=== PATIENT | male | born 1960 | race Asian ===

== ENCOUNTER 2025-03-10 12:29 | Outpatient (CLI) | payer MEDICAID ==
[2025-03-10] MEDS ORDERED: GADOTERATE MEGLUMINE 7.5 MMOL/15 ML VIAL IV ONE (19:09)
--- NOTE | 2025-03-11 05:27 | RADIOLOGY REPORT ---
PROCEDURE: MR MRI LUMBAR SPINE INDICATION: MALIGNANT NEOPLASM OF PROSTATE Exam Date: 03/10/2025 01:08 PM COMPARISON: None TECHNIQUE: MRI lumbar spine without intravenous contrast. FINDINGS: EXAM: MRI Lumbar Spine without contrast INDICATION: TECHNIQUE: Multiplanar, multisequence MR imaging of the lumbar spine was performed without IV contrast. FINDINGS: GENERAL: Lumbar lordosis is straightened. CONUS: Conus medullaris terminates at the L1-L2 level, demonstrates normal signal. CAUDA EQUINA: Unremarkable. OSSEOUS STRUCTURES: Marginal endplate osteophytic spurring is noted at L5-S1. ALIGNMENT: No vertebral body listhesis is present. BONE MARROW: Multiple marrow-replacing lesions measuring 4 28 mm are present in the vertebral bodies from T12 to L4, in S2 S3, and in the left ilium. No cortical bone destruction or extraosseous (soft-tissue) component is identified. The appearance is suspicious for osseous metastases. Endplate irregularity is noted at L3-4. Modic I changes at L5-S1. PARASPINAL SOFT TISSUES: Mild edema of the paravertebral fat. DISCS: Disc desiccation at L4-L5 and L5-S1. Intervertebral disc height loss at L5-S1. T12-L1: The disc configuration is normal. No spinal canal or neural foraminal stenosis. The facet joints are normal. L1-2: The disc configuration is normal. No spinal canal or neural foraminal stenosis. The facet joints are normal. L2-3: The disc configuration is normal. No spinal canal or neural foraminal stenosis. Mild facet arthrosis. L3-4: The disc configuration is normal. 2mm diffuse disc bulge. No spinal canal stenosis. Mild bilateral foraminal stenosis. Mild facet arthrosis. L4-5: 2.5 mm diffuse disc bulge. No spinal canal stenosis. Mild right and moderate left foraminal stenosis. Moderate facet arthrosis. L5-S1: 3.5 mm diffuse disc bulge. No spinal canal stenosis. Moderate left and severe right foraminal stenosis with potential right exiting L5 nerve root compression. Moderate facet arthrosis. IMPRESSION: 1. 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 2. Severe right foraminal stenosis at L5-S1 with potential right exiting L5 nerve root compression. 3. Moderate left foraminal stenosis at L5-S1. 4. Modic I endplate changes at L5-S1. 5. Mild edema of the paravertebral fat.
== END 2025-03-10 23:59 | disposition home or self-care (01) ==
LOC: MRI 12:29
PROVIDERS: ATTEND Registered Nurse Gerontology
DX: C61 Malignant neoplasm of prostate (principal); M47.817 Spondylosis without myelopathy or radiculopathy, lumbosacral region; M51.379 Other intervertebral disc degeneration, lumbosacral region without mention of lumbar back pain or lower extremity pain; R60.0 Localized edema; M48.07 Spinal stenosis, lumbosacral region
CPT/HCPCS: 72148; A9575